=== PATIENT | female | born 1950 | race Caucasian/White ===

== ENCOUNTER 2017-03-01 17:45 | Emergency (ER) | payer OTHER, MEDICARE ==
[2017-03-01 18:20] VITALS: BMI 37.9
--- NOTE | 2017-03-01 18:41 | PDOC ---
History of Present Illness - General Chief Complaint: Cold Symptoms Stated Complaint: FEVER, COLD SYMPTOMS, H/A, SHOULDER & CHEST PAIN Time Seen by Provider: 03/01/17 18:20 History Source: Patient Exam Limitations: No Limitations - History of Present Illness Initial Comments: 03/01/17 19:03 The patient is a 66 year old female, with a significant past medical history of diabetes, hypertension, hyperthyroidism, polymyalgia, and arthritis, who presents to the emergency department with headache and chest pain for approximately 2 weeks. The patient reports she woke up 2 weeks ago, with a mild headache and chest pain. She states the symptoms have been worsening over the past 2 weeks. She reports her chest pain is left-sided and is pleuritic in nature and worse when she takes a deep breath. She does endorse very brief nasal congestion but ddenies it is bothering her. She denies any diaphoresis, palpitations, calf pain, or lower extremity edema. Today, patient reports her TMax was 101.8 at approximately 16:00. Patient rates her headache and chest pain a 10/10 currently. She reports associated lightheadedness and body aches. Patient states she got her flu shot 2 days ago, but typically she does not develop any flu symptoms. Today, patient reports taking Tylenol in the morning with minimum relief of symptoms. She denies any chills, changes in vision, rhinorrhea, sore throat, or cough. She denies any abdominal pain, nausea, vomiting, hemoptysis, diarrhea, constipation, or changes in urinary patterns. She denies any recent travel or sick contacts. Allergies: Naproxen Past Surgical History: Appendectomy, Cholecystectomy, Splenectomy, Left carpal tunnel Social History: Former smoker. No ETOH or recreational drug use. PCP: Dr. Downing Past History - Past Medical History Allergies/Adverse Reactions: Allergies Allergy/AdvReac Type Severity Reaction Status Date / Time naproxen [From Naprosyn] Allergy Intermediate BLISTERS Verified 03/01/17 18:04 IN MOUTH Home Medications: Ambulatory Orders Furosemide [Lasix -] 40 mg PO Q48H 04/12/12 Metformin HCl [Glucophage] 1,000 mg PO BID 04/12/12 Calcium Carbonate [Calcium] 600 mg PO DAILY 06/01/15 Magnesium Oxide [Magnesium] 400 mg PO DAILY 06/01/15 Multivit-Min/FA/Lycopen/Lutein [Centrum Silver Tablet] 1 each PO DAILY 09/20/15 Potassium Chloride [Klor-Con M20] 20 meq PO BID 09/20/15 Cyclobenzaprine HCl [Flexeril -] 10 mg PO TID PRN #0 tablet 10/15/15 Cholecalciferol (Vitamin D3) [Vitamin D3] 5,000 unit PO DAILY 03/01/17 Duloxetine HCl [Cymbalta] 30 mg PO DAILY 03/01/17 Levothyroxine [Synthroid -] 125 mcg PO DAILY 03/01/17 Omeprazole 20 mg PO DAILY 03/01/17 Pioglitazone HCl [Actos] 30 mg PO DAILY 03/01/17 Prednisone [Deltasone -] 4 mg PO UTDICT 03/01/17 Anemia: No Asthma: No Cancer: No Cardiac Disorders: No CVA: No COPD: No CHF: No Dementia: No Diabetes: Yes GI Disorders: No Disorders: No HTN: No Hypercholesterolemia: No Liver Disease: No Seizures: No Thyroid Disease: No Other medical history: POLYMYALGIA - Surgical History Abdominal Surgery: Yes ([id number]) Appendectomy: Yes Cardiac Surgery: No Cholecystectomy: Yes Lung Surgery: No Neurologic Surgery: No Orthopedic Surgery: Yes (RIGHT KNEE ARTHROSCOPY) - Suicide/Smoking/Psychosocial Hx Smoking Status: Yes Smoking History: Former smoker Have you smoked in the past 12 months: No Number of Cigarettes Smoked Daily: 0 If you are a former smoker, when did you quit?: 1999 Information on smoking cessation initiated: No Hx Alcohol Use: No Drug/Substance Use Hx: No Substance Use Type: None Hx Substance Use Treatment: No Review of Systems - Review of Systems Able to Perform ROS?: Yes Comments:: 03/01/17 19:03 CONSTITUTIONAL: Reported: Fever, Diffuse body aches. No reported:Chills, Diaphoresis, Generalized Weakness, Malaise, Loss of Appetite HEENT: No reported: Rhinorrhea, Nasal Congestion, Throat Pain, Throat Swelling, Difficulty Swallowing, Mouth Swelling, Ear Pain, Eye Pain, Visual Changes CARDIOVASCULAR: Reported: Pleuritic chest pain, Lightheadedness No reported: Syncope, Palpitations, Irregular Heart Rate, Peripheral Edema RESPIRATORY: No reported: Cough, Shortness of Breath, SOB with Exertion, Orthopnea, Wheezing , Stridor, Hemoptysis GASTROINTESTINAL: No reported: Abdominal pain, Abdominal Distension, Nausea, Vomiting, Diarrhea, Constipation, Melena, Hematochezia GENITOURINARY: No reported: Dysuria, Frequency, Urgency, Hesitancy, Flank Pain, Genital Pain MUSCULOSKELETAL: No reported: Myalgia, Arthralgia, Joint Swelling, Back pain, Neck Pain SKIN: No reported: Rash, Itching, Pallor HEMEATOLOGIC/IMMUNOLOGIC: No reported: Easy Bleeding, Easy Bruising, Lymphadenopathy, Frequent infections ENDOCRINE: No reported: Unexplained Weight Gain, Unexplained Weight Loss, Heat Intolerance , Cold Intolerance NEUROLOGIC: Reported: Headache,Lightheadedness No reported: Focal Weakness, Paresthesias, Vertigo, Unsteady Gait, Seizure, Mental Status Changes, Incontinence PSYCHIATRIC: No reported: Anxiety, Depression *Physical Exam - Vital Signs Last Vital Signs Temp Pulse Resp BP Pulse Ox 102.7 F H 106 H 16 150/70 94 L 03/01/17 17:50 03/01/17 17:50 03/01/17 17:50 03/01/17 17:50 03/01/17 17:50 - Physical Exam Comments: 03/01/17 19:03 GENERAL: The patient is awake, alert, and fully oriented, Nontoxic - in no acute distress. HEAD: Normocephalic, atraumatic. EYES: extraocular movements intact, sclera anicteric, conjunctiva clear. ENT: Normal voice, Moist mucous membranes. NECK: Normal range of motion, supple LUNGS: Breath sounds equal, clear to auscultation bilaterally. No wheezes, no rhonchi, no rales. HEART: slightly tachycardic, normal S1 and S2 without murmur, rub or gallop. ABDOMEN: Soft, nontender, normoactive bowel sounds. No guarding, no rebound. . No CVA tenderness EXTREMITIES: Normal range of motion, no edema. Neg homans sign, no calf tenderness or cords palpable. NEUROLOGICAL: No facial assymetry, Normal speech, PSYCH: Normal mood, normal affect. SKIN: hot to touch, Dry, normal turgor, Heart Score/ECG Review - ECG Impressions Comment:: 03/01/17 19:03 Twelve-lead EKG was performed and reviewed by me. There is normal sinus rhythm with a normal rate. rate of 100 The axis is normal. The intervals are normal. There is normal R wave progression There are no ST or T wave abnormalities. Impression: Normal twelve-lead EKG ED Treatment Course - LABORATORY CBC & Chemistry Diagram: 03/01/17 19:00 03/01/17 19:00 Medical Decision Making - Medical Decision Making 03/01/17 18:56 differential for the pts symptoms include pna, influenza, pe, viral syndrome pts symptoms atypical as she has not had any coughing, or real nasal congestion will ck labs, cxr, influenza, if negative, consider advanced imaging for chest 03/01/17 19:14 will sign the pt out to dr. kamara to reasess the pt and follow labs and imaging *DC/Admit/Observation/Transfer Diagnosis at time of Disposition: Viral illness, Fever - Discharge Dispostion Disposition: HOME Condition at time of disposition: Good - Referrals Referrals: Eros Downing MD [Primary Care Provider] - - Patient Instructions Printed Discharge Instructions: DI for Viral Upper Respiratory Infection -- Adult Additional Instructions: Tylenol for pain or fevers. Return to the emergency department immediately with ANY new, persistent or worsening symptoms. Continue any medications as previously prescribed by your physician. You should follow up with your primary doctor as soon as possible regarding today's emergency department visit. . Please make sure your doctor reviews the results of your emergency evaluation. Thank you for coming to the Emergency Department today for your care. It was a pleasure to see you today. Please note that your evaluation is INCOMPLETE until you follow-up with your doctor.
[2017-03-01] MEDS ORDERED: ACETAMINOPHEN 325 MG TABLET (FP) PO ONE ×2 (18:44→18:47)
[2017-03-01 19:19] LABS: EOSINOPHIL 1.1 % (0-4.5); MCH 29.2 pg (25.7-33.7); MCHC 33.1 g/dl (32.0-36.0); MEAN CELL VOLUME 88.2 fl (80-96); MEAN PLT VOLUME 9.1 fl (7.5-11.1); NEUTROPHILS 72.2 % (42.8-82.8); PLATELET COUNT 223 K/MM3 (134-434); RDW 13.9 % (11.6-15.6); WHITE BLOOD COUNT 7.2 K/mm3 (4.0-10.8)
[2017-03-01] MEDS ORDERED: ACETAMINOPHEN 325 MG TABLET (FP) ONE (19:26)
[2017-03-01 19:27] LABS: ALBUMIN 3.2 g/dl (3.5-5.0); ALK PHOS 58 U/L (32-92); ANION GAP 8 (8-16); BILIRUBIN,TOTAL 0.3 mg/dl (0.2-1.0); CALCIUM 8.1 mg/dl (8.4-10.2); CO2 26 mmol/L (22-28); CREATININE 0.7 mg/dl (0.6-1.3); GLUCOSE,RANDOM 113 mg/dl (74-106); SGOT/AST 37 U/L (10-42); SGPT/ALT 30 U/L (10-40); TOT PROT 6.2 g/dl (6.4-8.3)
--- NOTE | 2017-03-01 19:27 | PDOC ---
*Physical Exam - Vital Signs Last Vital Signs Temp Pulse Resp BP Pulse Ox 102.7 F H 106 H 16 150/70 94 L 03/01/17 17:50 03/01/17 17:50 03/01/17 17:50 03/01/17 17:50 03/01/17 17:50 ED Treatment Course - LABORATORY CBC & Chemistry Diagram: 03/01/17 19:00 03/01/17 19:00 - ADDITIONAL ORDERS Additional order review: 03/01/17 19:00 RBC 4.06 MCV 88.2 MCHC 33.1 RDW 13.9 MPV 9.1 Neutrophils % 72.2 D Lymphocytes % 10.5 D Monocytes % 16.2 H Eosinophils % 1.1 Basophils % 0.0 Progress Note - Progress Note Progress Note: Care of this patient was transferred to ne from Dr. king at 1900 hrs. Patient is a 66-year-old female who comes in complaining of upper respiratory tract type illness symptoms. Patient had a fever of 102.7 on arrival here in the emergency room. Patient has history significant for polymyalgia rheumatica and diabetes. Patient is on prednisone. Patient has a workup pending including labs, chest x-ray. Patient is receiving fluids has been given Tylenol for her fever. Patient's chest x-ray shows no acute infiltrate or pathology. Patient's CBC is a normal white count and no left shift. Patient's chemistries are unremarkable with the exception of some mild abnormalities of a slightly elevated glucose and slightly decreased sodium and calcium. Patient's influenza screen was negative Patient was discharged home will follow-up with her primary care doctor and her senior director creative services *DC/Admit/Observation/Transfer Diagnosis at time of Disposition: Viral illness Fever Qualifiers: Fever type: unspecified Qualified Code(s): R50.9 - Fever, unspecified - Discharge Dispostion Disposition: HOME Condition at time of disposition: Good Admit: No - Referrals Referrals: Eros Downing MD [Primary Care Provider] - - Patient Instructions Printed Discharge Instructions: DI for Viral Upper Respiratory Infection -- Adult Additional Instructions: Tylenol for pain or fevers. Return to the emergency department immediately with ANY new, persistent or worsening symptoms. Continue any medications as previously prescribed by your physician. You should follow up with your primary doctor as soon as possible regarding today's emergency department visit. . Please make sure your doctor reviews the results of your emergency evaluation. Thank you for coming to the Emergency Department today for your care. It was a pleasure to see you today. Please note that your evaluation is INCOMPLETE until you follow-up with your doctor.
[2017-03-01 20:24] VITALS: BP 128/66; PULSE 88; TEMP 99.9
--- NOTE | 2017-03-06 10:55 | EKG ---
Test Reason : Blood Pressure : / mmHG Vent. Rate : 100 BPM Atrial Rate : 100 BPM P-R Int : 162 ms QRS Dur : 090 ms QT Int : 322 ms P-R-T Axes : 004 -13 -05 degrees QTc Int : 415 ms NORMAL SINUS RHYTHM NO PREVIOUS ECGS AVAILABLE Confirmed by MD ARMENDARIZ MARJORY ([id number]) on 03/06/2017 10:54:50 AM Referred By: DR VICTOR Confirmed By:MIRIAM ARMENDARIZ MD
== END 2017-03-01 21:30 | disposition home or self-care (01) ==
LOC: FER 17:45
DX: B34.9 Viral infection, unspecified (principal); R50.9 Fever, unspecified; I10 Essential (primary) hypertension; E78.00 Pure hypercholesterolemia, unspecified; E03.9 Hypothyroidism, unspecified; E11.9 Type 2 diabetes mellitus without complications; Z87.891 Personal history of nicotine dependence
CPT/HCPCS: 36415; 71020-TC; 80053; 84484; 85025; 87804; 93005; 99283-25

== ENCOUNTER 2018-09-25 06:51 | Day surgery (SDC) | payer OTHER, MEDICARE ==
[2018-09-24 13:03] VITALS: BMI 35.5
[2018-09-25] MEDS: CIPROFLOXACIN 0.3% EYE DROPS 5 ML BOTTLE ONE ×3 (07:50→08:00)
[2018-09-25] MEDS: TROPICAMIDE 1% OPHTH SOLN 15 ML BOTTLE ONE ×3 (07:50→08:00)
[2018-09-25] MEDS: CYCLOPENTOLATE 2% OPHTH SOLN 2 ML BOTTLE ONE ×3 (07:50→08:00)
[2018-09-25] MEDS: PHENYLEPHRINE 2.5% OPHTH SOLN 15 ML BOTTLE ONE ×3 (07:50→08:00)
[2018-09-25] MEDS ORDERED: LIDOCAINE 1% P/F 10 MG/ML VIAL ONE (08:52)
[2018-09-25] MEDS ORDERED: TETRACAINE 0.5% OPHTH SOLN 2 ML BOTTLE ONE (08:52)
[2018-09-25] MEDS ORDERED: NEO/POLYMYX B SULF/DEXAMETH OPHTHALMIC 5ML BOTTLE ONE (08:52)
[2018-09-25] MEDS ORDERED: CARBACHOL 0.01% INTRA-OCULAR 1.5 ML VIAL ONE (08:52)
[2018-09-25] MEDS ORDERED: BSS (NA/CA/MG/K) BALANCED SALT SOLUTION OPHTH SOLN 15 ML BOTTLE ONE (08:52)
[2018-09-25] MEDS ORDERED: MIDAZOLAM HCL 2 MG/2 ML SINGLE DOSE VIAL ONE ×2 (09:00→09:10)
[2018-09-25 09:36] VITALS: TEMP 98.1
--- NOTE | 2018-09-25 09:54 | OP ---
DATE OF OPERATION: 09/25/2018 OPERATIVE PROCEDURE: Lens Phacoemulsification with Posterior Chamber Intraocular Lens Placement Left Eye PREOPERATIVE DIAGNOSIS: Visually Significant Cataract of Left Eye POSTOPERATIVE DIAGNOSIS: Visually Significant Cataract of Left Eye SURGEON: Marco Hankins M.D. ANESTHESIA: MAC PROCEDURE: The patient was brought to the operating room and placed under monitored anesthesia care by Anesthesia. A drop of Tetracaine was then placed over the left eye. The patient was then prepped and draped in the usual sterile manner. A speculum was then placed over the left eye. The eye was then well irrigated with copious amounts of BSS (balanced salt solution). The operating microscope was then moved into position. A paracentesis was performed using a 15 degree blade. At this point 0.5 mL of 1% preservative-free lidocaine was injected into the anterior chamber. Amvisc plus was then injected into the anterior chamber. A clear corneal incision was then formed using a 2.2 mm keratome. A capsulorrhexis was then performed in a continuous circular fashion beginning with a cystotome, completed with an Utratas forceps. Hydrodissection was then performed using BSS on a cannula. The phaco probe was then introduced through the corneal wound and the cataract was removed using the phaco chop technique. Approximately 3 seconds of absolute phaco time was used. The remaining cortex was then removed using irrigation and aspiration with an I/A probe. The capsule was then filled with regular Amvisc and the capsule was noted to be intact. A previously selected foldable posterior chamber intraocular lens was then injected into the capsule through the corneal wound using a lens injector. It was then dialed into position using a Sinskey hook. The Amvisc was then removed using irrigation and aspiration. Miostat was then injected through the paracentesis to constrict the pupil. The paracentesis and corneal wound were then hydrated and noted to be water tight. A drop of Maxitrol was then placed over the eye. The speculum was removed and clear shield was taped over the eye. The patient tolerated the procedure well and there were no surgical complications. The patient was asked to follow up in my office the next day. MARCO HANKINS M.D. [id number]
[2018-09-25 09:59] VITALS: BP 138/74; PULSE 71
== END 2018-09-25 10:10 | disposition home or self-care (01) ==
LOC: FASU 06:51
PROVIDERS: ATTEND Ophthalmology
PROC: 08RK3JZ Replacement of Left Lens with Synthetic Substitute, Percutaneous Approach (ICD-10-PCS; principal; 2018-09-25 09:10)
DX: H26.8 Other specified cataract (principal)
CPT/HCPCS: 82962

== ENCOUNTER 2018-11-20 06:33 | Day surgery (SDC) | payer OTHER, MEDICARE ==
[2018-11-13 15:17] VITALS: BMI 36.1
[2018-11-20] MEDS ORDERED: EPINEPHrine/PF 1 MG/1 ML (1:1,000) AMPULE ONE (07:09)
[2018-11-20] MEDS ORDERED: CARBACHOL 0.01% INTRA-OCULAR 1.5 ML VIAL ONE (07:10)
[2018-11-20] MEDS ORDERED: LIDOCAINE 1% P/F 10 MG/ML VIAL ONE (07:10)
[2018-11-20] MEDS ORDERED: BSS (NA/CA/MG/K) BALANCED SALT SOLUTION OPHTH SOLN 15 ML BOTTLE ONE (07:10)
[2018-11-20] MEDS ORDERED: NEO/POLYMYX B SULF/DEXAMETH OPHTHALMIC 5ML BOTTLE ONE (07:11)
[2018-11-20] MEDS: TROPICAMIDE 1% OPHTH SOLN 15 ML BOTTLE ONE ×3 (07:20→07:30)
[2018-11-20] MEDS: CIPROFLOXACIN 0.3% EYE DROPS 5 ML BOTTLE ONE ×3 (07:20→07:30)
[2018-11-20] MEDS: PHENYLEPHRINE 2.5% OPHTH SOLN 15 ML BOTTLE ONE ×3 (07:20→07:30)
[2018-11-20] MEDS: CYCLOPENTOLATE 2% OPHTH SOLN 2 ML BOTTLE ONE ×3 (07:20→07:30)
[2018-11-20] MEDS ORDERED: MIDAZOLAM HCL 2 MG/2 ML SINGLE DOSE VIAL ONE (07:53)
[2018-11-20 08:34] VITALS: TEMP 98.4
--- NOTE | 2018-11-20 08:38 | OP ---
DATE OF OPERATION: 11/20/2018 OPERATIVE PROCEDURE: Lens Phacoemulsification with Posterior Chamber Intraocular Lens Placement, Right Eye PREOPERATIVE DIAGNOSIS: Visually Significant Cataract of Right Eye POSTOPERATIVE DIAGNOSIS: Visually Significant Cataract of Right Eye SURGEON: Marco Hankins M.D. ANESTHESIA: MAC PROCEDURE: The patient was brought to the operating room and placed under monitored anesthesia care by Anesthesia. A drop of Tetracaine was then placed over the right eye. The patient was then prepped and draped in the usual sterile manner. A speculum was then placed over the right eye. The eye was then well irrigated with copious amounts of BSS (balanced salt solution). The operating microscope was then moved into position. A paracentesis was performed using a 15 degree blade. At this point 0.5 mL of 1% preservative free-lidocaine was injected into the anterior chamber. Amvisc plus was then injected into the anterior chamber. A clear corneal incision was then formed using a 2.2 mm keratome. A capsulorrhexis was then performed in a continuous circular fashion beginning with a cystotome completed with an Utratas forceps. Hydrodissection was then performed using BSS on a cannula. The phaco probe was then introduced through the corneal wound and the cataract was removed using the phaco chop technique. Approximately 3 seconds of absolute phaco time was used. The remaining cortex was then removed using irrigation and aspiration with an I/A probe. The capsule was then filled with regular Amvisc and the capsule was noted to be intact. A previously selected foldable posterior chamber intraocular lens was then injected into the capsule through the corneal wound using a lens injector. It was then dialed into position using a Sinskey hook. The Amvisc was then removed using irrigation and aspiration. Miostat was then injected through the paracentesis to constrict the pupil. The paracentesis and corneal wound were then hydrated and noted to be water tight. A drop of Maxitrol was then placed over the eye. The speculum was removed and clear shield was taped over the eye. The patient tolerated the procedure well and there were no surgical complications. The patient was asked to follow up in my office the next day. MARCO HANKINS M.D. [id number]
[2018-11-20 08:54] VITALS: BP 128/75; PULSE 76
== END 2018-11-20 08:58 | disposition home or self-care (01) ==
LOC: FASU 06:33
PROVIDERS: ATTEND Ophthalmology
PROC: 08RJ3JZ Replacement of Right Lens with Synthetic Substitute, Percutaneous Approach (ICD-10-PCS; principal; 2018-11-20 08:08)
DX: H26.8 Other specified cataract (principal)
CPT/HCPCS: 82962

== ENCOUNTER 2019-05-13 16:38 | Emergency (ER) | payer OTHER, MEDICARE ==
[2019-05-13 16:58] VITALS: BP 114/67; PULSE 88; TEMP 99; BMI 27.4
--- NOTE | 2019-05-13 17:36 | PDOC ---
History of Present Illness - General Chief Complaint: Cold Symptoms Stated Complaint: COUGH FOR 2 DAYS Time Seen by Provider: 05/13/19 16:56 - History of Present Illness Initial Comments: 05/15/19 07:34 Chief complaint: Cough HPI: Persistent cough over 1 week, not improving, despite completed course of antibiotics. Review of systems: Denies fever/chills, chest pain, shortness of breath, abdominal pain, nausea, vomiting, diarrhea, visual or focal neurologic symptoms , unsteadiness of gait. Remainder of systems reviewed and negative Past medical history: Significant for splenectomy in the past for ITP. No significant subsequent sepsis or severe infections. Mild hypertension. Hypothyroidism. GERD. Social history: Stable home and family, denies tobacco alcohol or drugs Family history: Reviewed and noncontributory Physical exam: Alert and oriented well-developed well-nourished no acute distress cheerful and cooperative. There is no tachypnea or dyspnea, and no other sign of respiratory distress. Afebrile, vital signs normal including respiratory rate and oxygen saturation ENT clear Neck supple without bruit mass or nodes Chest clear bilaterally, full breath sounds throughout, no wheezes rales or rhonchi CV normal Abdomen benign Neurological intact Extremities no CCE Skin clear, no rash, adequate turgor and wet mucous membranes Impression: No sign of significant respiratory disease at present. Cough may be residual inflammatory bronchitis. However, in view of splenectomy, chest x- ray for further evaluation Plan: Chest x-ray is negative. Supportive care. Follow-up if fever, chest pain , or shortness of breath. No distress at discharge with to follow-up as directed Past History - Past Medical History Allergies/Adverse Reactions: Allergies Allergy/AdvReac Type Severity Reaction Status Date / Time naproxen [From Naprosyn] Allergy Intermediate BLISTERS Verified 05/13/19 16:42 IN MOUTH Home Medications: Ambulatory Orders metFORMIN HCL [Glucophage] 1,000 mg PO BID 04/12/12 Potassium Chloride [Klor-Con M20] 20 meq PO BID 09/20/15 Duloxetine HCl [Cymbalta] 30 mg PO DAILY 03/01/17 Omeprazole 20 mg PO DAILY 03/01/17 Pioglitazone HCl [Actos] 30 mg PO DAILY 03/01/17 Atenolol [Tenormin -] 25 mg PO DAILY 09/24/18 Cyclobenzaprine HCl [Flexeril -] 10 mg PO HS 09/24/18 Dulaglutide [Trulicity] 1.5 mg SQ WEEKLY 09/24/18 Levothyroxine [Synthroid -] 100 mcg PO ASDIR 11/13/18 Levothyroxine [Synthroid -] 125 mcg PO DAILY 11/13/18 Anemia: No Asthma: No Cancer: No Cardiac Disorders: No CVA: No COPD: No CHF: No Dementia: No Diabetes: Yes GI Disorders: No Disorders: No HTN: Yes Hypercholesterolemia: No Liver Disease: No Psychiatric Problems: Yes (depression) Seizures: No Thyroid Disease: Yes - Surgical History Abdominal Surgery: Yes ([id number]) Appendectomy: Yes Cardiac Surgery: No Cholecystectomy: Yes Lung Surgery: No Neurologic Surgery: No Orthopedic Surgery: Yes (RIGHT KNEE ARTHROSCOPY) - Psycho Social/Smoking Cessation Hx Smoking Status: Yes Smoking History: Former smoker Have you smoked in the past 12 months: No Number of Cigarettes Smoked Daily: 0 If you are a former smoker, when did you quit?: 1994 Information on smoking cessation initiated: No Hx Alcohol Use: No Drug/Substance Use Hx: No Substance Use Type: None Hx Substance Use Treatment: No *Physical Exam - Vital Signs Last Vital Signs Temp Pulse Resp BP Pulse Ox 99 F 88 20 114/67 98 05/13/19 16:41 05/13/19 16:41 05/13/19 16:41 05/13/19 16:41 05/13/19 16:41 ED Treatment Course - LABORATORY CBC & Chemistry Diagram: 05/13/19 17:56 05/13/19 17:56 Discharge - Discharge Information Problems reviewed: Yes Clinical Impression/Diagnosis: Viral URI with cough Condition: Stable Disposition: HOME - Admission No - Follow up/Referral Referrals: Kat Oleary MD [Primary Care Provider] - 3 days - Patient Discharge Instructions Patient Printed Discharge Instructions: DI for Viral Upper Respiratory Infection -- Adult Additional Instructions: Return to ER if there is fever/chills, chest pain, shortness of breath. Otherwise follow-up with primary physician in 2 to 3 days Cough medication as needed to relieve symptoms. - Post Discharge Activity
[2019-05-13 18:06] LABS: BASO % 1.5 % (0-2.0); EOS % 1.4 % (0-4.5); HEMOGLOBIN 12.4 GM/dl (10.7-15.3); LYMPH % 30.1 % (8-40); MCH 28.7 pg (25.7-33.7); MCHC 31.8 g/dl (32.0-36.0); MEAN PLT VOLUME 8.7 fl (7.5-11.1); MONO % 11.2 % (3.8-10.2); NEUT % 55.8 % (42.8-82.8); PLATELET COUNT 297 K/MM3 (134-434); RBC 4.34 M/mm3 (3.60-5.2); RDW 14.2 % (11.6-15.6); WHITE BLOOD COUNT 9.9 K/mm3 (4.0-10.8)
[2019-05-13 18:27] LABS: ALBUMIN 3.6 g/dl (3.4-5.0); BILIRUBIN,TOTAL 0.3 mg/dl (0.2-1); CALCIUM 8.8 mg/dl (8.5-10); CREATININE 0.7 mg/dl (0.55-1.3); POTASSIUM 4.5 mmol/L (3.5-5.1); TOT PROT 7.2 g/dl (6.4-8.2)
== END 2019-05-13 18:50 | disposition home or self-care (01) ==
LOC: FER 16:38
DX: J06.9 Acute upper respiratory infection, unspecified (principal); I10 Essential (primary) hypertension; E03.9 Hypothyroidism, unspecified; F32.9 Major depressive disorder, single episode, unspecified
CPT/HCPCS: 36415; 71046-TC-FY; 80053; 85025; 99282-25

== ENCOUNTER 2019-06-12 13:05 | Emergency (ER) | payer OTHER, MEDICARE ==
[2019-06-12 13:22] VITALS: BP 153/85; PULSE 89; TEMP 98.5; BMI 35.2
[2019-06-12] MEDS ORDERED: TETANUS AND DIPHTHERIA TOXOID 0.5 ML DISP.SYRIN IM ONE ×2 (13:40→13:50)
--- NOTE | 2019-06-12 13:40 | PDOC ---
History of Present Illness - General Chief Complaint: Bite Stated Complaint: DOG BITE Time Seen by Provider: 06/12/19 13:25 History Source: Patient Exam Limitations: No Limitations - History of Present Illness Initial Comments: 06/12/19 13:26 HPI: 68 yo F PMH noncontributory, presenting 1 hour s/p dog bite. Patient was breaking up a fight between two dogs, both known to her, both vaccinated, the Labrador mix bit her on her left third digit, lateral, with curved edges at the PIP and DIP at 12:45AM. She reports movement is intact, she has normal sensation distally, and endorsed initial bleeding that responded to pressure. Unknown tetanus status. All: Naproxen Meds: Per chart PMH: DM, Arthritis, GERD, HTN, Hypothyroid PSH: Splenectomy, cholecystectomy, appendectomy, B/LTL, bastric surgery, carpal tunnel, L hip replacement Past History - Travel Traveled outside of the country in the last 30 days: No Close contact w/someone who was outside of country & ill: No - Past Medical History Allergies/Adverse Reactions: Allergies Allergy/AdvReac Type Severity Reaction Status Date / Time naproxen [From Naprosyn] Allergy Intermediate BLISTERS Verified 06/12/19 13:08 IN MOUTH Home Medications: Ambulatory Orders metFORMIN HCL [Glucophage] 1,000 mg PO BID 04/12/12 Potassium Chloride [Klor-Con M20] 20 meq PO BID 09/20/15 Duloxetine HCl [Cymbalta] 30 mg PO DAILY 03/01/17 Omeprazole 20 mg PO DAILY 03/01/17 Pioglitazone HCl [Actos] 30 mg PO DAILY 03/01/17 Atenolol [Tenormin -] 25 mg PO DAILY 09/24/18 Cyclobenzaprine HCl [Flexeril -] 10 mg PO HS 09/24/18 Dulaglutide [Trulicity] 1.5 mg SQ WEEKLY 09/24/18 Levothyroxine [Synthroid -] 100 mcg PO ASDIR 11/13/18 Levothyroxine [Synthroid -] 125 mcg PO DAILY 11/13/18 Amox-Tr/K Cl [Augmentin - 875Mg Tablet] 1 tab PO BID #14 tablet 06/12/19 Calcium Carbonate [Calcium] 600 mg PO DAILY 06/12/19 Cholecalciferol (Vitamin D3) [Vitamin D3] 2,000 unit PO DAILY 06/12/19 Glucosa [place] 2Kcl/Chondroitin [place] [Glucosamine & Chondroitin Cap] 1 each PO DAILY 06/12/19 Magnesium Oxide [Magnesium] 400 mg PO DAILY 06/12/19 Multivit-Min/FA/Lycopen/Lutein [Centrum Silver Tablet] 1 each PO DAILY 06/12/19 [place]-3/Dha/Epa/Fish Oil [Fish Oil [place]-3 EC 1,200 mg] 1 each PO DAILY Quinidine Sulfate 400 mg PO HS 06/12/19 Anemia: No Asthma: No Cancer: No Cardiac Disorders: No CVA: No COPD: No CHF: No Dementia: No Diabetes: Yes GI Disorders: No Disorders: No HTN: Yes Hypercholesterolemia: No Liver Disease: No Psychiatric Problems: Yes (depression) Seizures: No Thyroid Disease: Yes - Surgical History Abdominal Surgery: Yes ([id number]) Appendectomy: Yes Cardiac Surgery: No Cholecystectomy: Yes Lung Surgery: No Neurologic Surgery: No Orthopedic Surgery: Yes (RIGHT KNEE ARTHROSCOPY) - Psycho Social/Smoking Cessation Hx Smoking Status: Yes Smoking History: Never smoked Have you smoked in the past 12 months: No Number of Cigarettes Smoked Daily: 0 If you are a former smoker, when did you quit?: 1994 Information on smoking cessation initiated: No Hx Alcohol Use: No Drug/Substance Use Hx: No Substance Use Type: None Hx Substance Use Treatment: No Review of Systems - Review of Systems Able to Perform ROS?: Yes Is the patient limited Austrian proficient: Yes Constitutional: No: Chills, Fever, Weakness HEENTM: No: Throat Pain Respiratory: No: Cough, Shortness of Breath Cardiac (ROS): No: Chest Pain, Edema, Irregular Heart Rate, Lightheadedness, Palpitations, Syncope, Chest Tightness ABD/GI: No: Constipated, Diarrhea, Nausea, Vomiting : No: Burning, Dysuria, Frequency Musculoskeletal: No: Muscle Pain, Muscle Weakness Integumentary: Yes: See HPI. No: Bruising, Rash Neurological: No: Headache, Numbness, Tingling, Weakness Psychiatric: No: Stressors, Change in Appetite Endocrine: No: Increased Thirst, Increased Urine Hematologic/Lymphatic: No: Anemia, Blood Clots, Easy Bleeding All Other Systems: Reviewed and Negative *Physical Exam - Vital Signs Last Vital Signs Temp Pulse Resp BP Pulse Ox 98.5 F 89 18 153/85 99 06/12/19 13:05 06/12/19 13:05 06/12/19 13:05 06/12/19 13:05 06/12/19 13:05 - Physical Exam 06/12/19 14:53 Vitals reviewed, AFVSS GEN: Well appearing, appears stated age, NAD, comfortable. AAOx3. HEENT: NCAT, EOMI, PERRL. Sclera anicteric, noninjected. No facial asymmetry. Moist mucous membranes. Normal voice. Trachea midline. CV: RRR, S1/S2, no murmurs / rubs / gallops appreciated. LUNG: CTAB, normal work of breathing. No wheezes, rales, rhonchi. No cough. Speaking full sentences. GI: Soft, NTND, no guarding, no rebound. No masses. Neg CVAT b/l. EXTREMITIES: 2+ distal pulses. Normal cap refill in affected digit, normal distal sensation, 3cm laceration on lateral 3rd digit of the right hand with flap. SKIN: Warm, dry, no rashes appreciated, non-jaundiced. PSYCH: Normal mood and affect. Cooperative and appropriate. NEURO: CN grossly intact. Moving all extremities well. Normal strength and sensation grossly. Procedures - Laceration/Wound Repair Left Lateral Finger 3rd digit Wound Length: 2.6 to 5.0 cm Wound Explored: no foreign body present Wound's Depth, Shape: irregular, flap, contused tissue Irrigated w/ Saline: Yes Betadine Prep: No Anesthesia: 1% Lidocaine Amount of Anesthetic (ccs): 4 (digit block) Wound Repaired With: Sutures Suture Size/Type: 5:0, nylon Number of Sutures: 12 Layer Closure: No Sterile Dressing Applied: No Splint Applied: No Sling Applied: No Medical Decision Making - Medical Decision Making 06/12/19 14:59 68 yo F PMH noncontributory, presenting 1 hour s/p dog bite. Laceration repaired , wound care and return precautions discussed. - Tetanus Booster given - Wound repair as per procedure note, uncomplicated - Augmentin 875 BID for 7 days Dispo: Home Discharge - Discharge Information Problems reviewed: Yes Clinical Impression/Diagnosis: Dog bite of extremity Condition: Stable Disposition: HOME - Admission No - Additional Discharge Information Prescriptions: Amox-Tr/K Cl [Augmentin - 875Mg Tablet] 1 tab PO BID #14 tablet - Follow up/Referral Referrals: Kat Oleary MD [Primary Care Provider] - - Patient Discharge Instructions Patient Printed Discharge Instructions: DI for Suture Removal, DI for Animal Bites Additional Instructions: You were seen and evaluated for a dog bite in the [facility]. Continue to take Tylenol or Motrin for your pain. A prescription has been sent to your pharmacy for antibiotics. Take this as directed for the full 7 day course. Keep the wound elevated. Keep it dry for the next 48 hours. After this period you can wash it with soap and water - allow this to run over the area, do not scrub. When not washing, leave the wound dry and covered in clean dry gauze and in the splint. Your sutures will be ready to come out in 14 days. Return to the ED tomorrow for a wound check. Then follow up with your PCP in the next 2-3 days for continued evaluation. Return to the ER for any new or concerning symptoms. These may include but are not limited to: swelling, redness, drainage from the repair site, or fevers/ chills. - Post Discharge Activity
--- NOTE | 2019-06-12 13:43 | PDOC ---
Attending Attestation - Resident Resident Name: Grey Valdovinos - ED Attending Attestation I have performed the following: I have examined & evaluated the patient, The case was reviewed & discussed with the resident, I agree w/resident's findings & plan, Exceptions are as noted - HPI HPI: 68 yo F presents s/p dog bite. She sustained the injury while breaking up a fight between two dogs. Her lab latched onto her hand and bit her finger, causing a laceration. Dog is fully vaccinated, no unusual behavior. No other injuries. - Physicial Exam PE: GENERAL: Awake, alert, and fully oriented, in no acute distress HEAD: No signs of trauma EYES: PERRLA, EOMI, sclera anicteric, conjunctiva clear EXTREMITIES: L 3rd finger with irregular laceration, 2 flaps. Mild oozing of blood. No surrounding erythema. Remainder of extremities with normal range of motion, no edema. No clubbing or cyanosis. No cords, erythema, or tenderness NEUROLOGICAL: Cranial nerves II through XII grossly intact. Normal speech, normal gait. Motor and sensation intact SKIN: Warm, dry, normal turgor, no rashes. - Medical Decision Making Given the size of the laceration and the location to the finger, will need to repair it. Will do a digital block, irrigate it well, and repair. Will place on abx. F/u with hand.
== END 2019-06-12 16:20 | disposition home or self-care (01) ==
LOC: FER 13:05
PROC: 0HQGXZZ Repair Left Hand Skin, External Approach (ICD-10-PCS; principal; 2019-06-12)
PROC: 3E0234Z Introduction of Serum, Toxoid and Vaccine into Muscle, Percutaneous Approach (ICD-10-PCS; 2019-06-12)
DX: S61.253A Open bite of left middle finger without damage to nail, initial encounter (principal); W54.0XXA Bitten by dog, initial encounter; Y93.89 Activity, other specified; Y92.009 Unspecified place in unspecified non-institutional (private) residence as the place of occurrence of the external cause; Z88.8 Allergy status to other drugs, medicaments and biological substances; Z87.891 Personal history of nicotine dependence; E07.9 Disorder of thyroid, unspecified
CPT/HCPCS: 99283-25

== ENCOUNTER 2019-06-13 12:49 | Emergency (ER) | payer OTHER, MEDICARE ==
[2019-06-13 12:59] VITALS: BP 143/64; PULSE 86; TEMP 98.7; BMI 35.2
--- NOTE | 2019-06-13 13:05 | PDOC ---
History of Present Illness - General Chief Complaint: Revisit,Wound Recheck Stated Complaint: WOUND CHECK LEFT 3RD FINGER Time Seen by Provider: 06/13/19 13:04 - History of Present Illness Initial Comments: HPI: 68yo F with no reported PMH presenting with wound check. Patient sustained a bite wound from her dog on her left third digit yesterday. She was evaluated in this ED yesterday. The wound was repaired with sutures given its size. Patient was given a tetanus shot and started on antibiotics which has been adherent. Endorses mild bleeding to the wound. There is also minor pain, swelling. No discharge coming from the wound. No fevers or chills. ROS: Constitutional: no fever, no chills HEENT: no throat pain, no dysphagia Cardiovascular: no chest pain, no palpitations Respiratory: no cough, no shortness of breath Gastrointestinal: no abdominal pain, no nausea Genitourinary: no dysuria, no hematuria Musculoskeletal: no myalgia, no arthralgia Skin: no rash, no itching Neurologic: no headache, no weakness Psych: no agitation, no anxiety PE: General: Awake, alert, and fully oriented, in no acute distress Head: No signs of trauma Eyes: EOMI, sclera anicteric ENT: Moist mucus membranes Neck: Normal ROM, supple Lungs: Lungs clear, Normal breath sounds Cardio: Regular rhythm, S1 and S2 present Abdomen: Soft, nontender Extremities: Normal range of motion, Distal pulses present Left hand: Sutured laceration present on right third digit with minimal erythema and edema. No discharge or lymphangitis. Normal strength and sensation in digits. Able to perform "A-ok" and "thumbs up", 2+ radial pulse SKIN: Warm, Dry, normal turgor Neurologic: Cranial nerves II through XII grossly intact. Normal speech ED Course/MDM: Wound is well appearing without signs of infection Patient to continue on antibiotics Instructed to continue to look for signs of infection Return precautions Stable for discharge Past History - Past Medical History Allergies/Adverse Reactions: Allergies Allergy/AdvReac Type Severity Reaction Status Date / Time naproxen [From Naprosyn] Allergy Intermediate BLISTERS Verified 06/13/19 12:50 IN MOUTH Home Medications: Ambulatory Orders Amox-Tr/K Cl [Augmentin - 875Mg Tablet] 1 tab PO BID #14 tablet 06/12/19 Atenolol [Tenormin -] 25 mg PO DAILY 06/13/19 Cyclobenzaprine HCl 10 mg PO DAILY 06/13/19 Dulaglutide [Trulicity] 1.5 mg SQ WEEKLY 06/13/19 Duloxetine HCl 30 mg PO DAILY 06/13/19 Levothyroxine Sodium [Synthroid] 125 mcg PO ASDIR 06/13/19 Levothyroxine [Synthroid -] 100 mcg PO DAILY 06/13/19 Metformin HCl [Glucophage] 1,000 mg PO BID 06/13/19 Omeprazole 20 mg PO DAILY 06/13/19 Pioglitazone HCl [Actos] 30 mg PO DAILY 06/13/19 Potassium Chloride [Klor-Con M20] 20 meq PO BID 06/13/19 Anemia: No Asthma: No Cancer: No Cardiac Disorders: No CVA: No COPD: No CHF: No Dementia: No Diabetes: Yes GI Disorders: No Disorders: No HTN: Yes Hypercholesterolemia: No Liver Disease: No Psychiatric Problems: Yes (DEPRESSION) Seizures: No Thyroid Disease: Yes - Surgical History Abdominal Surgery: Yes ([id number]) Appendectomy: Yes Cardiac Surgery: No Cholecystectomy: Yes Lung Surgery: No Neurologic Surgery: No Orthopedic Surgery: Yes (RIGHT KNEE ARTHROSCOPY) - Psycho Social/Smoking Cessation Hx Smoking Status: Yes Smoking History: Never smoked Have you smoked in the past 12 months: No Number of Cigarettes Smoked Daily: 0 If you are a former smoker, when did you quit?: 1994 Information on smoking cessation initiated: No Hx Alcohol Use: No Drug/Substance Use Hx: No Substance Use Type: None Hx Substance Use Treatment: No *Physical Exam - Vital Signs Last Vital Signs Temp Pulse Resp BP Pulse Ox 98.7 F 86 18 143/64 99 06/13/19 12:50 06/13/19 12:50 06/13/19 12:50 06/13/19 12:50 06/13/19 12:50 Discharge - Discharge Information Problems reviewed: Yes Clinical Impression/Diagnosis: Visit for wound check Condition: Stable Disposition: HOME - Follow up/Referral - Patient Discharge Instructions Patient Printed Discharge Instructions: DI for Dog Bite, How to Care for a Surgical Wound-Stitches Additional Instructions: You came to the emergency department because of a wound check. Continue taking the antibiotics. Immediate medical attention is required if experience: profuse bleeding, redness or hardness around the wound, bleeding, pain or tenderness, a red streak, yellow or green discharge oozing from the wound, fever or chills. If you think there is an emergency, call for emergency medical services or present to the emergency department right away - Post Discharge Activity
--- NOTE | 2019-06-13 13:59 | PDOC ---
Attending Attestation - Resident Resident Name: [employer] - ED Attending Attestation I have performed the following: I have examined & evaluated the patient, The case was reviewed & discussed with the resident, I agree w/resident's findings & plan, Exceptions are as noted - HPI HPI: 06/13/19 13:58 68 yo f h/o dog bite to hand yesterday, seen for sutures. on antiobiotics currently here for wound check. no f/cno redness. no swelling pain controlled. - Physicial Exam PE: 06/13/19 13:59 pt sutures intact. min erythema. no exudate. no streaking. min swelling appropriate for day one after injury. - Medical Decision Making 06/13/19 13:59 dc home continue augmentin return for signs of infection . told to soak hand daily.
== END 2019-06-13 14:01 | disposition home or self-care (01) ==
LOC: FER 12:49
PROC: 0HQGXZZ Repair Left Hand Skin, External Approach (ICD-10-PCS; principal; 2019-06-13)
DX: S61.253A Open bite of left middle finger without damage to nail, initial encounter (principal); W54.0XXA Bitten by dog, initial encounter; Y93.89 Activity, other specified; Y92.89 Other specified places as the place of occurrence of the external cause; Z88.8 Allergy status to other drugs, medicaments and biological substances
CPT/HCPCS: 12001-25; 99281-25

== ENCOUNTER 2019-06-27 12:06 | Emergency (ER) | payer OTHER, MEDICARE ==
[2019-06-27 12:12] VITALS: BP 143/95; PULSE 90; TEMP 98.2; BMI 34.3
--- NOTE | 2019-06-27 12:21 | PDOC ---
Suture Removal/Wound Check HPI - History of Present Illness Chief Complaint: Suture/Staple Removal(Here) Stated Complaint: SUTURE REMOVAL Time Seen by Provider: 06/27/19 12:11 History Source: Yes: Patient Exam Limitations: Yes: No Limitations Treated at: [facility] Date of Last ED visit: 06/12/19 - Onset of Previous Treatment Comment:: 68 yo F presents for suture removal, s/p lac repair for dog bite to L 3rd finger on June 12. She states no swelling, no redness, no drainage. Has been healing well, no complaints. Past History - Past Medical History Allergies/Adverse Reactions: Allergies Allergy/AdvReac Type Severity Reaction Status Date / Time naproxen [From Naprosyn] Allergy Intermediate BLISTERS Verified 06/27/19 12:07 IN MOUTH Home Medications: Ambulatory Orders Amox-Tr/K Cl [Augmentin - 875Mg Tablet] 1 tab PO BID #14 tablet 06/12/19 Atenolol [Tenormin -] 25 mg PO DAILY 06/13/19 Cyclobenzaprine HCl 10 mg PO DAILY 06/13/19 Dulaglutide [Trulicity] 1.5 mg SQ WEEKLY 06/13/19 Duloxetine HCl 30 mg PO DAILY 06/13/19 Levothyroxine Sodium [Synthroid] 125 mcg PO ASDIR 06/13/19 Levothyroxine [Synthroid -] 100 mcg PO DAILY 06/13/19 Metformin HCl [Glucophage] 1,000 mg PO BID 06/13/19 Omeprazole 20 mg PO DAILY 06/13/19 Pioglitazone HCl [Actos] 30 mg PO DAILY 06/13/19 Potassium Chloride [Klor-Con M20] 20 meq PO BID 06/13/19 Anemia: No Asthma: No Cancer: No Cardiac Disorders: No CVA: No COPD: No CHF: No Dementia: No Diabetes: Yes GI Disorders: No Disorders: No HTN: Yes Hypercholesterolemia: No Liver Disease: No Psychiatric Problems: Yes (DEPRESSION) Seizures: No Thyroid Disease: Yes - Surgical History Abdominal Surgery: Yes ([id number]) Appendectomy: Yes Cardiac Surgery: No Cholecystectomy: Yes Lung Surgery: No Neurologic Surgery: No Orthopedic Surgery: Yes (RIGHT KNEE ARTHROSCOPY) - Psycho Social/Smoking Cessation Hx Smoking Status: Yes Smoking History: Former smoker Have you smoked in the past 12 months: No Number of Cigarettes Smoked Daily: 0 If you are a former smoker, when did you quit?: 1994 Information on smoking cessation initiated: No Hx Alcohol Use: No Drug/Substance Use Hx: No Substance Use Type: None Hx Substance Use Treatment: No *Review of Systems - Review of Systems Able to Perform ROS?: Yes GENERAL/CONSTITUTIONAL: No fever or chills. No weakness. MUSCULOSKELETAL: No joint or muscle swelling or pain. No neck or back pain. SKIN: No rash. +Healing laceration *Physical Exam - Vital Signs Last Vital Signs Temp Pulse Resp BP Pulse Ox 98.2 F 90 20 143/95 100 06/27/19 12:07 06/27/19 12:07 06/27/19 12:07 06/27/19 12:07 06/27/19 12:07 - Physical Exam GENERAL: Awake, alert, and fully oriented, in no acute distress EXTREMITIES: Normal range of motion, no edema. No clubbing or cyanosis. No cords, erythema, or tenderness SKIN: Warm, dry, normal turgor, no rashes. +Healing laceration to L 3rd finger, no darinage, no erythema. Sutures intact Procedures - Additional Procedures Progress: Twelve sutures removed with forceps and #11 blade, no complications. Patient tolerated well. +Hemostasis. Steri-strips placed. Discharge - Discharge Information Problems reviewed: Yes Clinical Impression/Diagnosis: Visit for suture removal Condition: Stable Disposition: HOME - Admission No - Follow up/Referral - Patient Discharge Instructions Patient Printed Discharge Instructions: DI for Suture Removal Print Language: NEPALI - Post Discharge Activity
== END 2019-06-27 12:28 | disposition home or self-care (01) ==
LOC: FER 12:06
DX: Z48.02 Encounter for removal of sutures (principal); I10 Essential (primary) hypertension; Z87.891 Personal history of nicotine dependence
CPT/HCPCS: 99281-25

== ENCOUNTER 2020-07-20 11:27 | Emergency (ER) | payer OTHER, MEDICARE | END 2020-07-20 11:55 | disposition home or self-care (01) | LOC: JVIRT 11:27 | DX: Z20.822 Contact with and (suspected) exposure to COVID-19 (principal) | CPT/HCPCS: C9803; G2251-GT; U0003 ==

== ENCOUNTER 2020-12-07 08:00 | Inpatient (IN) | payer OTHER, MEDICARE ==
[2020-12-01 13:37] VITALS: BMI 31.8
[2020-12-07] MEDS ORDERED: CEFAZOLIN 2 GM in DEXTROSE 5%-WATER - 50 ML IVPB ONE (08:48)
[2020-12-07] MEDS ORDERED: TRANEXAMIC ACID 1000 MG/10 ML VIAL IVPUSH ONE (08:48)
[2020-12-07] MEDS ORDERED: BUPIVACAINE HCL/PF 0.5% (5MG/ML) 10 ML VIAL ONE (10:34)
[2020-12-07] MEDS ORDERED: MIDAZOLAM HCL 2 MG/2 ML SINGLE DOSE VIAL ONE ×2 (10:34→10:45)
[2020-12-07] MEDS ORDERED: SODIUM CHLORIDE 0.9% P/F 10 ML VIAL IJ ONE (10:34)
[2020-12-07] MEDS ORDERED: BUPIVACAINE LIPOSOME/PF (EXPAREL) 266 MG/20 ML VIAL ONE (10:34)
[2020-12-07] MEDS ORDERED: LIDOCAINE HCL 2% 100 MG/5 ML DISP.SYRIN ONE (10:44)
[2020-12-07] MEDS ORDERED: ceFAZolin SODIUM 1 GM VIAL ONE (10:45)
[2020-12-07] MEDS ORDERED: ROCURONIUM BROMIDE 50 MG/5 ML SYRINGE ONE (10:45)
[2020-12-07] MEDS ORDERED: PROPOFOL 20 ML ONE (10:45)
[2020-12-07] MEDS ORDERED: VANCOMYCIN 1,000 MG VIAL (RESTRICTED TO ID ONLY) ONE (10:45)
[2020-12-07] MEDS ORDERED: PATIENT'S OWN MEDICATION (NON-FORMULARY) (Dulaglutide [Trulicity] 1.5 MG/0.5 ML Pen.Injctr SQ SCH (11:30)
[2020-12-07] MEDS ORDERED: MAG HYDROX/AL HYDROX/SIMETH 30 ML UNIT-DOSE CUP PO PRN (11:33)
[2020-12-07] MEDS ORDERED: MAGNESIUM HYDROX 2400MG/30ML ORAL SUSPENSION 30 ML CUP PO PRN (11:33)
[2020-12-07] MEDS ORDERED: ONDANSETRON 4 MG/2 ML VIAL IVPUSH PRN (11:33)
[2020-12-07] MEDS ORDERED: LACTATED RINGERS SOLUTION 1,000 ML IV SCH (11:45)
[2020-12-07] MEDS ORDERED: THROMBIN (BOVINE) 5,000 UNIT VIAL TP ONE ×2 (12:06→12:14)
[2020-12-07] MEDS ORDERED: GELATIN, ABSORBABLE 100 EACH SPONGE TP ONE (12:24)
[2020-12-07] MEDS ORDERED: GLYCOPYRROLATE 0.2 MG/1 ML VIAL ONE (12:24)
[2020-12-07] MEDS ORDERED: NEOSTIGMINE METHYLSULFATE 0.5 MG/ML - 10 ML MDV ONE (12:24)
[2020-12-07] MEDS ORDERED: HYDROmorphone HCL/PF 1 MG/ML VIAL ONE (13:22)
[2020-12-07] MEDS ORDERED: ACETAMINOPHEN INJECTION 100 ML IVPB ONE (13:26)
[2020-12-07] MEDS: ACETAMINOPHEN 1000 MG/100 ML VIAL (NON FORMULARY) IVPB ONE ×2 (13:30→16:39)
[2020-12-07] MEDS ORDERED: HYDROmorphone HCL CARPU-JECT 1 MG/1 ML DISP.SYRIN IVPUSH ONE (13:43)
[2020-12-07] MEDS ORDERED: ONDANSETRON 4 MG/2 ML VIAL ONE (14:00)
[2020-12-07] MEDS: oxyCODONE HCL 5 MG TABLET PO PRN ×2 (14:05→20:06)
[2020-12-07] MEDS ORDERED: oxyCODONE HCL 5 MG TABLET ONE (14:12)
[2020-12-07] MEDS: metFORMIN HCL 500 MG TABLET (FP) PO SCH (16:51)
[2020-12-07] MEDS: INSULIN SLIDING SCALE (NOVOLOG) 1 VIAL SQ SCH ×2 (16:53→22:18)
[2020-12-07] MEDS ORDERED: LOCK ITEM NR ONE (18:30)
[2020-12-07] MEDS: ACETAMINOPHEN 325 MG TABLET (FP) PO SCH (20:06)
[2020-12-07] MEDS: CEFAZOLIN 2 GM/D5W 2 GM/50 ML ML IVPB SCH (20:06)
[2020-12-07] MEDS: SENNOSIDES/DOCUSATE COMBO (SENNA PLUS) TABLET (UD) PO SCH (22:18)
[2020-12-07] MEDS: POTASSIUM CHLORIDE TABS 20 MEQ TABLET.ER (FP) PO SCH (22:18)
[2020-12-07] MEDS: TOPIRAMATE 25 MG TABLET PO SCH (22:19)
[2020-12-07] MEDS: oxyCODONE HCL 10 MG SUSTAINED ACTING TABLET PO SCH (22:19)
[2020-12-07] MEDS: DULoxetine HCL 30 MG CAPSULE.DR PO SCH (22:19)
[2020-12-08] MEDS: oxyCODONE HCL 5 MG TABLET PO PRN ×6 (01:40→20:25)
[2020-12-08] MEDS: ACETAMINOPHEN 325 MG TABLET (FP) PO SCH ×4 (02:20→20:25)
[2020-12-08] MEDS ORDERED: ACETAMINOPHEN 1000 MG/100 ML VIAL (NON FORMULARY) IVPB PRN (04:02)
[2020-12-08] MEDS: KETOROLAC TROMETHAMINE 30 MG/1 ML VIAL IVPUSH PRN ×2 (04:20→11:22)
[2020-12-08] MEDS: CEFAZOLIN 2 GM/D5W 2 GM/50 ML ML IVPB SCH (04:33)
[2020-12-08] MEDS: PIOGLITAZONE HCL 15 MG TABLET PO SCH (06:55)
[2020-12-08] MEDS: metFORMIN HCL 500 MG TABLET (FP) PO SCH ×2 (06:55→16:57)
[2020-12-08] MEDS: INSULIN SLIDING SCALE (NOVOLOG) 1 VIAL SQ SCH ×4 (06:56→21:22)
[2020-12-08] MEDS ORDERED: LEVOTHYROXINE NA 100 MCG TABLET (FP) PO SCH (07:00)
[2020-12-08 07:46] LABS: HEMATOCRIT 29.7 % (32.4-45.2); HEMOGLOBIN 9.9 GM/dl (10.7-15.3); MCH 28.6 pg (25.7-33.7); MCHC 33.5 g/dl (32.0-36.0); MEAN CELL VOLUME 85.3 fl (80-96); MEAN PLT VOLUME 9.3 fl (7.5-11.1); PLATELET COUNT 254 10^3/uL (134-434); RBC 3.48 M/mm3 (3.60-5.2); RDW 16.3 % (11.6-15.6); WHITE BLOOD COUNT 11.4 K/mm3 (4.0-10.8)
[2020-12-08] MEDS: ASPIRIN 325 MG TABLET PO SCH (08:13)
[2020-12-08] MEDS: POTASSIUM CHLORIDE TABS 20 MEQ TABLET.ER (FP) PO SCH ×2 (09:31→21:17)
[2020-12-08] MEDS: DULoxetine HCL 30 MG CAPSULE.DR PO SCH ×2 (09:31→21:17)
[2020-12-08] MEDS: oxyCODONE HCL 10 MG SUSTAINED ACTING TABLET PO SCH ×2 (09:32→21:17)
[2020-12-08] MEDS: ATENOLOL 25 MG TABLET (FP) PO SCH (09:33)
[2020-12-08] MEDS: SENNOSIDES/DOCUSATE COMBO (SENNA PLUS) TABLET (UD) PO SCH ×2 (09:33→21:18)
[2020-12-08] MEDS: PANTOPRAZOLE 40 MG TABLET PO SCH (09:33)
[2020-12-08] MEDS: MULTIVITAMINS (DAILY MVI) TABLET (FP) PO SCH (09:33)
[2020-12-08] MEDS ORDERED: KETOROLAC TROMETHAMINE 30 MG/1 ML VIAL IVPUSH SCH (10:00)
[2020-12-08] MEDS: TOPIRAMATE 25 MG TABLET PO SCH (21:18)
[2020-12-09] MEDS: oxyCODONE HCL 5 MG TABLET PO PRN ×2 (00:13→03:48)
[2020-12-09] MEDS: ACETAMINOPHEN 325 MG TABLET (FP) PO SCH ×3 (03:47→14:02)
[2020-12-09] MEDS ORDERED: LEVOTHYROXINE NA 125 MCG TABLET (FP) PO SCH (07:00)
[2020-12-09] MEDS: INSULIN SLIDING SCALE (NOVOLOG) 1 VIAL SQ SCH ×2 (07:13→12:03)
[2020-12-09] MEDS: PIOGLITAZONE HCL 15 MG TABLET PO SCH (07:15)
[2020-12-09] MEDS: metFORMIN HCL 500 MG TABLET (FP) PO SCH (07:15)
[2020-12-09 08:04] LABS: HEMATOCRIT 28.6 % (32.4-45.2); HEMOGLOBIN 9.2 GM/dl (10.7-15.3); MCH 27.6 pg (25.7-33.7); MCHC 32.3 g/dl (32.0-36.0); MEAN CELL VOLUME 85.6 fl (80-96); MEAN PLT VOLUME 9.1 fl (7.5-11.1); PLATELET COUNT 247 10^3/uL (134-434); RBC 3.34 M/mm3 (3.60-5.2); RDW 15.2 % (11.6-15.6); WHITE BLOOD COUNT 13.4 K/mm3 (4.0-10.8)
[2020-12-09] MEDS: ASPIRIN 325 MG TABLET PO SCH (08:23)
[2020-12-09] MEDS: POTASSIUM CHLORIDE TABS 20 MEQ TABLET.ER (FP) PO SCH (09:28)
[2020-12-09] MEDS: MULTIVITAMINS (DAILY MVI) TABLET (FP) PO SCH (09:28)
[2020-12-09] MEDS: PANTOPRAZOLE 40 MG TABLET PO SCH (09:28)
[2020-12-09] MEDS: DULoxetine HCL 30 MG CAPSULE.DR PO SCH (09:28)
[2020-12-09] MEDS: oxyCODONE HCL 10 MG SUSTAINED ACTING TABLET PO SCH (09:28)
[2020-12-09] MEDS: SENNOSIDES/DOCUSATE COMBO (SENNA PLUS) TABLET (UD) PO SCH (09:28)
[2020-12-09 09:31] VITALS: BP 101/54; PULSE 87; TEMP 98.9
[2020-12-09] MEDS: ATENOLOL 25 MG TABLET (FP) PO SCH (11:39)
== END 2020-12-09 15:51 | DRG 470 ==
LOC: FM/S 08:33
PROVIDERS: ADMIT Orthopaedic Surgery; ATTEND Orthopaedic Surgery
PROC: 8E0Y0CZ Robotic Assisted Procedure of Lower Extremity, Open Approach (ICD-10-PCS; 2020-12-07)
PROC: 0SRC0JA Replacement of Right Knee Joint with Synthetic Substitute, Uncemented, Open Approach (ICD-10-PCS; principal; 2020-12-07 11:46)
DX: M17.11 Unilateral primary osteoarthritis, right knee (principal)
CPT/HCPCS: 36415; 73560-TC-RT-FY; 82962; 85027; 94760; 97010-GP; 97116-GP; 97163-GP; C9803; J0131; U0003; U0005

== ENCOUNTER 2022-08-14 09:34 | Day surgery (SDC) | payer OTHER, MEDICARE ==
[2022-08-14 08:21] VITALS: BMI 32.1
[2022-08-14 14:00] VITALS: TEMP 97.5
[2022-08-14 14:04] VITALS: RESP 16
[2022-08-14 14:09] VITALS: BP 120/54; PULSE 68
== END 2022-08-14 11:40 | disposition home or self-care (01) ==
LOC: FASU-ENDO 09:34
PROVIDERS: ATTEND Internal Medicine Gastroenterology
PROC: 0DBM8ZX Excision of Descending Colon, Via Natural or Artificial Opening Endoscopic, Diagnostic (ICD-10-PCS; principal; 2022-08-14 10:25)
DX: Z12.11 Encounter for screening for malignant neoplasm of colon (principal); Z86.010 Personal history of colon polyps; K57.30 Diverticulosis of large intestine without perforation or abscess without bleeding
CPT/HCPCS: 82962; 88305-TC

== ENCOUNTER 2023-08-09 07:44 | Day surgery (SDC) | payer OTHER, MEDICARE ==
[2023-08-08 10:12] VITALS: BMI 32.3
[2023-08-09 09:14] VITALS: RESP 16; TEMP 97.8
[2023-08-09 09:26] VITALS: BP 129/69; PULSE 69
== END 2023-08-09 10:00 | disposition home or self-care (01) ==
LOC: FASU-ENDO 07:44
PROVIDERS: ATTEND Internal Medicine Gastroenterology
PROC: 0DB68ZX Excision of Stomach, Via Natural or Artificial Opening Endoscopic, Diagnostic (ICD-10-PCS; 2023-08-09)
PROC: 0DB58ZX Excision of Esophagus, Via Natural or Artificial Opening Endoscopic, Diagnostic (ICD-10-PCS; principal; 2023-08-09 08:48)
DX: B37.81 Candidal esophagitis (principal); K31.9 Disease of stomach and duodenum, unspecified; K29.70 Gastritis, unspecified, without bleeding; R13.10 Dysphagia, unspecified
CPT/HCPCS: 82962; 88305-TC; 88312-TC; 88342-TC